=== PATIENT | male | born 1960 | race Caucasian/White ===

== ENCOUNTER 2020-04-28 19:04 | Emergency (ER) | payer OTHER ==
[2020-04-28] MEDS ORDERED: Acetaminophen 500 MG TAB ONE (19:28)
[2020-04-28] MEDS ORDERED: Ondansetron PF 4 MG/2 ML Vial ONE (20:07)
[2020-04-28 20:29] LABS: #Eosinphils 0.1 thou/uL (0.0-0.7); #Lymphocytes 0.4 thou/uL (1.20-3.40); #Monocytes 0.3 thou/uL (0.11-0.59); #Neutrophils 4.1 thou/uL (1.40-6.50); %Basophils 0.9 % (0.0-1.0); %Eosinophils 2.8 % (0.0-10.0); %Lymphocytes 8.3 % (21.0-51.0); %Monocytes 6.9 % (0.0-10.0); %Neutrophils 81.1 % (42.0-75.0); Hemoglobin 15.2 g/dL (14.0-18.0); Mean Corpuscular HGB CONC 31.6 g/dL (32.0-36.0); Mean Corpuscular Hemoglobin 31.1 pg (27.0-31.0); Mean Corpuscular Volume 98.4 fL (78.0-98.0); Mean Platelet Volume 7.7 fL (7.4-10.4); Platelet Count 188 thou/uL (130-400); RBC Distribution Width 11.7 % (11.5-14.5)
[2020-04-28 20:44] LABS: ALT (SGPT) 26 U/L (8-55); AST (SGOT) 17 U/L (5-34); Albumin 4.4 g/dL (3.5-5.0); Alkaline Phosphatase 36 U/L (40-110); Anion Gap 12 mmol/L (10-20); BUN (Urea Nitrogen) 15 mg/dL (8.4-25.7); Bilirubin, Total 0.7 mg/dL (0.2-1.2); Calc. Creatinine Clearance 0 mL/min (70-130); Carbon Dioxide 27 mmol/L (22-29); Chloride 101 mmol/L (98-107); Estimated GFR-MDRD Greater than 90; Globulin 2.7 g/dL (2.4-3.5); Glucose 110 mg/dL (70-105); Lipase 6 U/L (8-78); Potassium 4.1 mmol/L (3.5-5.1); Protein, Total 7.1 g/dL (6.0-8.3); Sodium 136 mmol/L (136-145)
[2020-04-29 17:38] LABS: SARS-CoV-2 MS2 Positive; SARS-CoV-2 N Gene Negative; SARS-CoV-2 S Gene Negative; SARS-CoV-2 orf1ab Negative
== END 2020-04-28 21:31 | disposition home or self-care (01) ==
LOC: BURERS 19:04
DX: R10.9 Unspecified abdominal pain (principal); R11.10 Vomiting, unspecified; I10 Essential (primary) hypertension; Z79.899 Other long term (current) drug therapy; Z20.828 Contact with and (suspected) exposure to other viral communicable diseases
CPT/HCPCS: 80053; 83605; 83690; 85025; 87635; 96361; 96374; J2405; U0003

== ENCOUNTER 2022-10-01 03:17 | Emergency (ER) | payer BC ==
[2022-10-01 04:23] LABS: SARS-CoV-2 NAA Rapid Test DETECTED (NotDetected)
[2022-10-01] MEDS ORDERED: predniSONE 20 MG TAB ONE (04:43)
== END 2022-10-01 04:45 | disposition home or self-care (01) ==
LOC: BURERS 03:17
DX: U07.1 COVID-19 (principal); I10 Essential (primary) hypertension; Z79.899 Other long term (current) drug therapy
CPT/HCPCS: 71045; 87804; J7512; U0002